=== PATIENT | female | born 1995 | race American Indian/Alaskan Native ===

== ENCOUNTER 2020-02-18 07:09 | Emergency (ER) | payer MEDICAID ==
[2020-02-18] MEDS ORDERED: SODIUM CHLORIDE 0.9% 1000 ML 1,000 ML IV ONE (08:17)
[2020-02-18] MEDS ORDERED: ACETAMINOPHEN 325 MG TAB PO ONE ×2 (08:17→08:33)
--- NOTE | 2020-02-18 08:22 | Emergency Department Report ---
ED Headache HPI - General Chief Complaint: Headache Stated Complaint: HEADACHE,NECK PAIN,DIARRHEA Time Seen by Provider: 02/18/20 08:02 Source: patient Exam Limitations: no limitations - History of Present Illness Initial Comments: 24-year-old female currently 34 weeks with her second presents to the hospital planing of neck pain and headache for the past 5 days and diarrhea for the last 3 days. Patient is complaining of pain to her neck that feels better with pressure and massage. She developed a mild posterior frontal headache 5 days ago that has gradually worsened and has remained constant but fluctuates in intensity. Pain is currently 8/10 in intensity. Patient is taken Tylenol intermittently for pain without relief and does admit to taking a dose of ibuprofen. She denies blurry vision, nausea vomiting, focal weakness or focal numbness. Patient has recently completed a 10-day course of Keflex for a buttock skin infection. She had skin scraping performed which was positive for staph resistant to penicillin. Patient was then switched to clindamycin. Since starting the clindamycin she has developed a lot of diarrhea with loose stools after eating food intake. Patient states she has been eating and drinking fairly appropriately. She denies abdominal pain and fever. She thinks that skin infection is improving on the medication. Denies diagnosis of abscess. 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 Allergies/Adverse Reactions: Allergies sulfamethoxazole [From Bactrim] Allergy (Verified 02/18/20 07:35) Rash trimethoprim [From Bactrim] Allergy (Verified 02/18/20 07:35) Rash Home Medications: Ambulatory Orders Loperamide HCl [Imodium A-D] 2 mg PO Q6H PRN #20 capsule 02/18/20 ED Review of Systems ROS: Stated complaint: HEADACHE,NECK PAIN,DIARRHEA Other details as noted in HPI Comment: All other systems reviewed and negative ED Past Medical Hx - Past Medical History Previous Medical History?: No - Surgical History Past Surgical History?: Yes Additional Surgical History: Tosilectomy - Medications Home Medications: Home Medications Medication Instructions Recorded Confirmed Last Taken Type Loperamide HCl [Imodium A-D] 2 mg PO Q6H PRN #20 capsule 02/18/20 Unknown Rx ED Physical Exam - General Limitations: No Limitations - Other Other exam information: General: No acute distress Head: Atraumatic Eyes: normal appearance ENT: Moist mucous membranes Neck: Normal appearance, no midline tenderness, no neck tenderness to palpation. No nuchal rigidity or pain with active or passive neck flexion and extension Chest: Clear to auscultation bilaterally CV: Regular rate and rhythm Abdomen: Soft, normal bowel sounds, nontender, nondistended, no rebound or guarding, gravid abdomen Back: Normal inspection Extremity: Normal inspection, full range of motion Neuro: Alert O x 3, no facial asymmetry, speech clear, no gross motor sensory deficit Psych: Appropriate behavior Skin: Bilateral buttock circular skin lesions towards the midline without pustules or areas of fluctuance. No confluent skin erythema ED Course Vital Signs 02/18/20 02/18/20 02/18/20 07:35 08:16 08:30 Temperature 98 F Pulse Rate 95 H 75 Respiratory 18 16 Rate Blood Pressure Blood Pressure 109/66 [Right] O2 Sat by Pulse 98 100 99 Oximetry 02/18/20 02/18/20 09:00 09:45 Temperature Pulse Rate 72 Respiratory 16 Rate Blood Pressure 107/64 107/64 Blood Pressure [Right] O2 Sat by Pulse 100 100 Oximetry - Consultations Consultation #1: 02/18/20 11:23 Consulted with Delores Miranda configuration engineer on-call via labor and delivery triage nurse regarding appropriate medication for diarrhea and third trimester . Imodium right ear recommended ED Medical Decision Making - Lab Data Result diagrams: 02/18/20 08:20 02/18/20 08:20 Lab Results 02/18/20 02/18/20 02/18/20 Range/Units 08:20 08:20 09:57 WBC 8.1 (4.5-11.0) K/mm3 RBC 3.97 (3.65-5.03) M/mm3 Hgb 12.4 (10.1-14.3) gm/dl Hct 37.2 (30.3-42.9) % MCV 94 (79-97) fl MCH 31 (28-32) pg MCHC 33 (30-34) % RDW 14.1 (13.2-15.2) % Plt Count 204 (140-440) K/mm3 Lymph % (Auto) 18.2 (13.4-35.0) % [place] % (Auto) 8.2 H (0.0-7.3) % Eos % (Auto) 0.6 (0.0-4.3) % Baso % (Auto) 0.4 (0.0-1.8) % Lymph # 1.5 (1.2-5.4) K/mm3 [place] # 0.7 (0.0-0.8) K/mm3 Eos # 0.1 (0.0-0.4) K/mm3 Baso # 0.0 (0.0-0.1) K/mm3 Seg Neutrophils % 72.6 H (40.0-70.0) % Seg Neutrophils # 5.9 (1.8-7.7) K/mm3 Sodium 137 (137-145) mmol/L Potassium 4.1 (3.6-5.0) mmol/L Chloride 101.8 (98-107) mmol/L Carbon Dioxide 23 (22-30) mmol/L Anion Gap 16 mmol/L BUN 10 (7-17) mg/dL Creatinine 0.5 L (0.6-1.2) mg/dL Estimated GFR > 60 ml/min BUN/Creatinine Ratio 20 % Glucose 75 (65-100) mg/dL Calcium 9.4 (8.4-10.2) mg/dL Total Bilirubin 0.20 (0.1-1.2) mg/dL AST 14 (5-40) units/L ALT 13 (7-56) units/L Alkaline Phosphatase 65 (35-129) units/L Total Protein 6.3 (6.3-8.2) g/dL Albumin 3.5 L (3.9-5) g/dL Albumin/Globulin Ratio 1.3 % Urine Color Yellow (Yellow) Urine Turbidity Clear (Clear) Urine pH 6.0 (5.0-7.0) Ur Specific [place] 1.018 (1.003-1.030) Urine Protein <15 mg/dl (Negative) mg/dL Urine Glucose (UA) Neg (Negative) mg/dL Urine Ketones Neg (Negative) mg/dL Urine Blood Neg (Negative) Urine Nitrite Neg (Negative) Urine Bilirubin Neg (Negative) Urine Urobilinogen < 2.0 (<2.0) mg/dL Ur Leukocyte Esterase Neg (Negative) Urine WBC (Auto) 1.0 (0.0-6.0) /HPF Urine RBC (Auto) 2.0 (0.0-6.0) /HPF U Epithel Cells (Auto) 1.0 (0-13.0) /HPF Urine Mucus 2+ /HPF - Radiology Data Radiology results: report reviewed CT head/brain wo con INDICATION / CLINICAL INFORMATION: 24 years Female; 5 day headache, 8 months . TECHNIQUE: Routine CT head without contrast. All CT scans at this location are performed using CT dose reduction for ALARA by means of automated exposure control. COMPARISON: None. FINDINGS: BRAIN / INTRACRANIAL CONTENTS: The brain parenchyma appears to demonstrate appropriate attenuation. The ventricular system is within normal limits in size and configuration. There is no CT evidence of acute intracranial hemorrhage or significant mass effect. ORBITS: No significant abnormality of visualized orbits. SINUSES / MASTOIDS: No significant abnormality in the visualized paranasal sinuses or mastoid air cells. CRANIOCERVICAL JUNCTION: No significant abnormality. ADDITIONAL FINDINGS: None. IMPRESSION: 1. There is no CT evidence of acute intracranial process. - Medical Decision Making Patient treated in the ED with additional Tylenol (did take 650 prior to arrival) and IV fluids. CT head and labs without acute abnormalities. I suspect that clindamycin is causing diarrhea. Alternative antibiotics are not as safe in . Imodium right ear will be prescribed to help control diarrhea and continued p.o. fluid hydration will be encouraged. Outpatient follow-up with her SOC ANALYST doctors advised Critical Care Time: No Critical care attestation.: If time is entered above; I have spent that time in minutes in the direct care of this critically ill patient, excluding procedure time. ED Disposition Clinical Impression: 34 weeks gestation of , Headache, Diarrhea, Adverse drug reaction, Infection of skin due to methicillin resistant Staphylococcus aureus (MRSA) Disposition: DC- TO HOME OR SELFCARE Is pt being admited?: No Does the pt Need Aspirin: No Condition: Stable Instructions: Acute Diarrhea (ED), Acute Headache (ED) Additional Instructions: Take the medication as prescribed. Follow-up with your SOC ANALYST doctor for further evaluation and management. Return if symptoms worsen as indicated by your discharge instructions. You may take up to 1000 mg of Tylenol every 6 hours for your headache. not to exceed 4000 mg/day. Take Imodium AD as needed for diarrhea which is likely a side effect of the prescribed clindamycin. Continue to drink plenty of fluids to maintain hydr ation Prescriptions: Loperamide HCl [Imodium A-D] 2 mg PO Q6H PRN #20 capsule PRN Reason: Diarrhea Referrals: your, obyn/doctor [Other] - 3-5 Days Time of Disposition: 11:29
[2020-02-18 08:34] LABS: Basophils % (Auto) 0.4 % (0.0-1.8); Eosinophils # (Auto) 0.1 K/mm3 (0.0-0.4); Eosinophils % (Auto) 0.6 % (0.0-4.3); Hematocrit 37.2 % (30.3-42.9); Hemoglobin 12.4 gm/dl (10.1-14.3); Lymphocytes # (Auto) 1.5 K/mm3 (1.2-5.4); Lymphocytes % (Auto) 18.2 % (13.4-35.0); Mean Corpuscular HGB Conc 33 % (30-34); Mean Corpuscular Volume 94 fl (79-97); Monocytes # (Auto) 0.7 K/mm3 (0.0-0.8); Monocytes % (Auto) 8.2 % (0.0-7.3); Platelet Count 204 K/mm3 (140-440); Red Blood Count 3.97 M/mm3 (3.65-5.03); Red Cell Distribution Width 14.1 % (13.2-15.2)
[2020-02-18 08:55] LABS: Alanine Aminotransferase 13 units/L (7-56); Albumin 3.5 g/dL (3.9-5); Blood Urea Nitrogen 10 mg/dL (7-17); Calcium 9.4 mg/dL (8.4-10.2); Hemolysis Index 2
[2020-02-18 08:57] LABS: BUN/Creatinine Ratio 20
[2020-02-18 10:00] VITALS: BP 107/64
[2020-02-18 10:19] LABS: Bilirubin,Urine NEG (Negative); Blood,Urine NEG (Negative); Color,Urine Yellow (Yellow); Mucus,Urine 2+ /HPF; Protein,Urine <15 mg/dL mg/dL (Negative); Urobilinogen,Urine < 2.0 mg/dL (<2.0)
--- NOTE | 2020-02-18 10:22 | Cat Scan Report ---
CT head/brain wo con INDICATION / CLINICAL INFORMATION: 24 years Female; 5 day headache, 8 months . TECHNIQUE: Routine CT head without contrast. All CT scans at this location are performed using CT dos e reduction for ALARA by means of automated exposure control. COMPARISON: None. FINDINGS: BRAIN / INTRACRANIAL CONTENTS: The brain parenchyma appears to demonstrate appropriate attenuation. T he ventricular system is within normal limits in size and configuration. There is no CT evidence of a cute intracranial hemorrhage or significant mass effect. ORBITS: No significant abnormality of visualized orbits. SINUSES / MASTOIDS: No significant abnormality in the visualized paranasal sinuses or mastoid air tatiana ls. CRANIOCERVICAL JUNCTION: No significant abnormality. ADDITIONAL FINDINGS: None. IMPRESSION: 1. There is no CT evidence of acute intracranial process. Signer Name: Alejandro Pimentel MD Signed: 02/18/2020 10:17 AM Workstation Name: [id number]
== END 2020-02-18 11:49 | disposition home or self-care (01) ==
LOC: ED 07:09
DX: O98.813 Other maternal infectious and parasitic diseases complicating pregnancy, third trimester (principal); B88.8 Other specified infestations; O9A.213 Injury, poisoning and certain other consequences of external causes complicating pregnancy, third trimester; T50.991A Poisoning by other drugs, medicaments and biological substances, accidental (unintentional), initial encounter; Z88.2 Allergy status to sulfonamides; Z3A.34 34 weeks gestation of pregnancy; Y92.89 Other specified places as the place of occurrence of the external cause
CPT/HCPCS: 36415; 70450; 80053; 81001; 85025; 96360; 99284; J7030